=== PATIENT | male | born 1950 | race Caucasian/White ===

== ENCOUNTER 2017-07-09 09:29 | Emergency (ER) | payer OTHER ==
[~2017-07-09] VITALS: Ht 167.6 cm; Wt 90.5 kg
[2017-07-09 09:32] VITALS: BP 199/90; PULSE 58; RESP 20; TEMP 98; O2SAT 98
[2017-07-09] MEDS ORDERED: LOVA20TA PO ×2 (10:43)
[2017-07-09] MEDS ORDERED: METO50TA PO ×2 (10:43)
[2017-07-09] MEDS ORDERED: TIZA4CAP3 PO ×2 (10:43)
[2017-07-09] MEDS ORDERED: PANT40TA3 PO ×2 (10:43)
[2017-07-09] MEDS ORDERED: VITACAP7 PO ×2 (10:43)
[2017-07-09] MEDS ORDERED: LOSA100T PO ×2 (10:43)
[2017-07-09] MEDS ORDERED: FISH1000 PO ×2 (10:43)
[2017-07-09] MEDS ORDERED: TRAM50TA PO ×2 (10:43)
[2017-07-09] MEDS ORDERED: ASPI325T PO ×2 (10:43)
[2017-07-09] MEDS ORDERED: CHOL20005 PO ×2 (10:43)
[2017-07-09] MEDS ORDERED: SODIUM CHLORIDE 0.9% FLUSH 10 ML FLUSH IVF PRN (10:45)
[2017-07-09] MEDS ORDERED: SODIUM CHLOR 0.9% 1000 ML INJ 1,000 ML IV ONE (10:45)
[2017-07-09 10:46] VITALS: BP 151/73; PULSE 57; RESP 17; O2SAT 96
--- NOTE | 2017-07-09 11:08 | PD ---
HPI Chief Complaint: Syncope/Near-Syncope Time Seen by Provider: 09:58 Travel History International Travel<30 days: No Contact w/Intl Traveler<30days: No Traveled to known affect area: No History of Present Illness HPI This 66-year-old man who presents to the emergency department complaining of syncopal episodes so she was swallowing. He states when he swallows liquids from time to time he gets lightheaded and presyncopal. He states that he feels like it's going into his lungs but denies any choking sensations or coughing. He has no trouble with solids ever. He's had his esophagus stretched twice after endoscopy. He's never had a swallow study. No history of stroke. He has had a CABG in the past. Had hypertension hyperlipidemia. No other complaints. He's now had several episodes of complete syncope but now feels like when he swallowing making feel coming on in and abort the episodes. It's unclear if this is related to certain head movements or not. History Past Medical History Narrative Medical CABG, CAD, Hypertension on hyperlipidemia Influenza Vaccination: Yes Social History Alcohol Use: Yes (occas) Tobacco Use: No Allergies-Medications (Allergen,Severity, Reaction): Coded Allergies: No Known Allergies (Unverified , 07/09/17) Reported Meds & Prescriptions Reported Meds & Active Scripts Active Reported B Complex (B-Complex Vitamins) 1 Cap 1 Cap PO DAILY Losartan (Losartan Potassium) 100 Mg Tab 100 Mg PO DAILY Aspirin 325 Mg Tab 325 Mg PO DAILY D3 Super Strength (Cholecalciferol) 2,000 Unit Cap 2,000 Units PO DAILY Fish Oil ([place]-3 Fatty Acids) 1,000 Mg Cap 1 Cap PO TID Lovastatin 20 Mg Tab 20 Mg PO DAILY Metoprolol Tartrate 50 Mg Tab 25 Mg PO BID Tizanidine (Tizanidine HCl) 4 Mg Cap 4 Mg PO TID PRN Tramadol (Tramadol HCl) 50 Mg Tab 50 Mg PO Q6H PRN Pantoprazole (Pantoprazole Sodium) 40 Mg Tab 40 Mg PO DAILY Review of Systems Except as stated in HPI: all other systems reviewed are Neg Physical Exam Narrative GENERAL: This 66-year-old man, no acute distress. SKIN: Focused skin assessment warm/dry. HEAD: Atraumatic. Normocephalic. EYES: Pupils equal and round. No scleral icterus. No injection or drainage. ENT: No nasal bleeding or discharge. Mucous membranes pink and moist. NECK: Trachea midline. No JVD. No carotid bruits. CARDIOVASCULAR: Regular rate and rhythm. No murmur appreciated. RESPIRATORY: No accessory muscle use. Clear to auscultation. Breath sounds equal bilaterally. GASTROINTESTINAL: Abdomen soft, non-tender, nondistended. Hepatic and splenic margins not palpable. MUSCULOSKELETAL: No obvious deformities. NEUROLOGICAL: Awake and alert. No obvious cranial nerve deficits. Motor grossly within normal limits. Normal speech. PSYCHIATRIC: Appropriate mood and affect; insight and judgment normal. Data Data Last Documented VS Vital Signs Date Time Temp Pulse Resp B/P (MAP) Pulse Ox O2 Delivery O2 Flow Rate FiO2 07/09/17 10:46 57 17 151/73 (99) 96 Room Air 07/09/17 09:32 98.0 Orders Orders Electrocardiogram (07/09/17 10:40) Complete Blood Count With Diff (07/09/17 10:40) Comprehensive Metabolic Panel (07/09/17 10:40) Magnesium (Mg) (07/09/17 10:40) Troponin I (07/09/17 10:40) Chest, Single Ap (07/09/17 10:40) Ecg Monitoring (07/09/17 10:40) Iv Access Insert/Monitor (07/09/17 10:40) Oximetry (07/09/17 10:40) Oxygen Administration (07/09/17 10:40) Sodium Chloride 0.9% Flush (Ns Flush) (07/09/17 10:45) Sodium Chlor 0.9% 1000 Ml Inj (Ns 1000 M (07/09/17 10:45) Labs Laboratory Tests Test 07/09/17 10:42 White Blood Count 7.0 TH/MM3 Red Blood Count 4.66 MIL/MM3 Hemoglobin 14.2 GM/DL Hematocrit 43.3 % Mean Corpuscular Volume 93.0 FL Mean Corpuscular Hemoglobin 30.6 PG Mean Corpuscular Hemoglobin Concent 32.9 % Red Cell Distribution Width 13.3 % Platelet Count 201 TH/MM3 Mean Platelet Volume 9.0 FL Neutrophils (%) (Auto) 69.4 % Lymphocytes (%) (Auto) 20.0 % Monocytes (%) (Auto) 8.3 % Eosinophils (%) (Auto) 2.0 % Basophils (%) (Auto) 0.3 % Neutrophils # (Auto) 4.9 TH/MM3 Lymphocytes # (Auto) 1.4 TH/MM3 Monocytes # (Auto) 0.6 TH/MM3 Eosinophils # (Auto) 0.1 TH/MM3 Basophils # (Auto) 0.0 TH/MM3 CBC Comment DIFF FINAL Differential Comment Blood Urea Nitrogen 18 MG/DL Creatinine 1.30 MG/DL Random Glucose 101 MG/DL Total Protein 7.3 GM/DL Albumin 3.6 GM/DL Calcium Level 9.6 MG/DL Magnesium Level 2.1 MG/DL Alkaline Phosphatase 68 U/L Aspartate Amino Transf (AST/SGOT) 13 U/L Alanine Aminotransferase (ALT/SGPT) 16 U/L Total Bilirubin 0.5 MG/DL Sodium Level 139 MEQ/L Potassium Level 4.2 MEQ/L Chloride Level 105 MEQ/L Carbon Dioxide Level 25.1 MEQ/L Anion Gap 9 MEQ/L Estimat Glomerular Filtration Rate 55 ML/MIN Troponin I LESS THAN 0.02 NG/ML MDM Medical Decision Making Medical Screen Exam Complete: Yes Emergency Medical Condition: Yes Interpretation(s) My review of EKG: Sinus bradycardia at a rate of 54, normal axis, normal intervals, no acute ischemia. CBC is unremarkable. CMP is unremarkable. Troponin negative. Chest x-ray: No evidence of acute cardiopulmonary disease. Mild cognitive cardiomegaly. Previous CABG. Differential Diagnosis Syncope, vascular disease, carotid sinus syndrome, other Narrative Course Medical decision making This 66 year woman who presents emergency department with syncopal and near- syncopal episodes associated with swallowing liquids. He has no trouble with solids. He has no coughing or other symptoms of aspiration describes symptoms as more of a lightheadedness and fainting symptoms. Is a little bit of a slow heart rate. Considerations given 2 carotid sinus symptoms or reflex bradycardia. We'll check screening labs and x-ray, reassess. FINAL: Initial workups unremarkable. Etiology is unclear. Could be silent aspiration he says he feels the need to cough but can't really cough. This could be contributing to his near syncopal episodes. Carotid sinus symptoms also seem possible. I do waiting to skin reevaluate as an outpatient. He'll return for any worsening symptoms. Diagnosis Primary Impression: Near syncope Additional Instructions: Follow-up with her primary doctor on Tuesday. Return to the emergency department for any new or worsening symptoms. Med/Other Pt SpecificInfo: No Change to Meds Disposition: 01 DISCHARGE HOME Condition: Stable Jamil Echavarria MD Jul 09, 2017 11:08
--- NOTE | 2017-07-09 11:09 | RADRPT ---
EXAM DATE/TIME: 07/09/2017 10:54 [facility] COMPARISON: No previous studies available for comparison. INDICATIONS : Feeling lightheaded after eating. Complaints of feeling food stuck in throat when eating. Fainted thr ee days ago after a meal. MEDICAL HISTORY : None. SURGICAL HISTORY : Quintuple bypass. ENCOUNTER: Initial ACUITY: 3 days PAIN SCORE: 0/10 LOCATION: Bilateral chest FINDINGS: No infiltrate, effusion or pneumothorax demonstrated. Mild compensated cardiomegaly. Patient has had previous median sternotomy and coronary artery bypass graft operation. CONCLUSION: 1. No evidence of acute cardiopulmonary disease. 2. Mild compensated cardiomegaly. Previous CABG. Avila Engle MD on July 09, 2017 at 11:07 Board Certified Radiologist. This report was verified electronically.
[2017-07-09 11:13] LABS: AUTOMATED NEUTROPHIL # 4.9 TH/MM3 (1.8-7.7); BASOPHIL % 0.3 % (0.0-2.0); EOSINOPHIL # 0.1 TH/MM3 (0-0.4); HEMATOCRIT 43.3 % (39.0-51.0); HEMO FLAGS DIFF FINAL; LYMPHOCYTE # 1.4 TH/MM3 (1.0-4.8); MEAN CORPUSCULAR HEMOGLOBIN 30.6 PG (27.0-34.0); MEAN CORPUSCULAR HGB CONC 32.9 % (32.0-36.0); MONO % 8.3 % (0.0-8.0); NEUT % 69.4 % (16.0-70.0); PLATELET COUNT 201 TH/MM3 (150-450); RED BLOOD COUNT 4.66 MIL/MM3 (4.50-5.90); RED CELL DISTRIBUTION WIDTH 13.3 % (11.6-17.2)
[2017-07-09 11:31] LABS: ANION GAP 9 MEQ/L (5-15); AST (GOT) 13 U/L (15-37); BICARBONATE 25.1 MEQ/L (21.0-32.0); BLOOD UREA NITROGEN 18 MG/DL (7-18); CHLORIDE 105 MEQ/L (98-107); GLOMERULAR FILTRATION RATE 55 ML/MIN (>89); MAGNESIUM 2.1 MG/DL (1.5-2.5); POTASSIUM 4.2 MEQ/L (3.5-5.1); SODIUM (NA) 139 MEQ/L (136-145)
[2017-07-09 11:33] LABS: ALT (GPT) 16 U/L (12-78)
[2017-07-09 11:36] LABS: ALKALINE PHOSPHATASE 68 U/L (45-117); TOTAL BILIRUBIN ADULT 0.5 MG/DL (0.2-1.0)
--- NOTE | 2017-07-09 15:22 | EKG ---
Date Performed: 07/09/2017 Time Performed: 10:03:48 PTAGE: 66 years EKG: SINUS BRADYCARDIA LOW QRS VOLTAGE IN PRECORDIAL LEADS BORDERLINE ECG NO PREVIOUS TRACING DOCTOR: Pete Chavez Interpretating Date/Time 07/09/2017 15:21:40
[2017-07-09] MEDS ORDERED: MULTTAB67 PO ×2 (16:54)
[2017-07-10] MEDS ORDERED: METO25TA3 PO (14:20)
== END 2017-07-09 12:30 | disposition home or self-care (01) ==
LOC: NEPC 09:29
DX: R55 Syncope and collapse (principal); R94.31 Abnormal electrocardiogram [ECG] [EKG]; I10 Essential (primary) hypertension; E78.5 Hyperlipidemia, unspecified; Z86.79 Personal history of other diseases of the circulatory system
CPT/HCPCS: 71010; 80053; 83735; 84484; 85025; 93005; 99285; J7030

== ENCOUNTER 2017-07-09 15:09 | Observation (INO) | payer OTHER ==
[2017-07-09] VITALS (7 sets, daily range): BP systolic 121–189; BP diastolic 58–86; PULSE 60–69; RESP 13–20; TEMP 98.1–98.7; O2SAT 97–99
[~2017-07-09] VITALS: Ht 167.6 cm; Wt 92.0 kg
[~2017-07-09 15:09] MED LIST: ASPI325T PO; CHOL20005 PO; FISH1000 PO; LOSA100T PO; LOVA20TA PO; METO50TA PO; PANT40TA3 PO; TIZA4CAP3 PO; TRAM50TA PO; VITACAP7 PO
[2017-07-09] MEDS ORDERED: MULTTAB67 PO ×2 (16:54)
--- NOTE | 2017-07-09 17:09 | PD ---
HPI Chief Complaint: Dizziness Time Seen by Provider: 16:41 Travel History International Travel<30 days: No Contact w/Intl Traveler<30days: No Traveled to known affect area: No History of Present Illness HPI This 66-year-old man who represents to the ED with complaint of lightheadedness dizziness presyncope after being discharged from the ED about 2 or 3 hours ago. Initially he presented To the emergency department complaining of syncopal episodes associated with swallowing. He states when he swallows liquids from time to time he gets lightheaded and presyncopal. He states that he feels like it's going into his lungs but denies any choking sensations or coughing. He has no trouble with solids ever. He's had his esophagus stretched twice after endoscopy. He's never had a swallow study. No history of stroke. He has had a CABG in the past. Had hypertension hyperlipidemia. No other complaints. He' s now had several episodes of complete syncope but now feels like when he swallowing making feel coming on in and abort the episodes. It's unclear if this is related to certain head movements or not. History Past Medical History Narrative Medical CABG, CAD, Hypertension hyperlipidemia Social History Alcohol Use: Yes (WEEKLY) Tobacco Use: No Allergies-Medications (Allergen,Severity, Reaction): Coded Allergies: codeine (Verified Allergy, Severe, Hives, 07/09/17) Reported Meds & Prescriptions Reported Meds & Active Scripts Active Reported Multiple Vitamin 1 Tab 1 Tab PO DAILY B Complex (B-Complex Vitamins) 1 Cap 1 Cap PO DAILY Losartan (Losartan Potassium) 100 Mg Tab 100 Mg PO DAILY Aspirin 325 Mg Tab 325 Mg PO DAILY D3 Super Strength (Cholecalciferol) 2,000 Unit Cap 2,000 Units PO DAILY Fish Oil ([place]-3 Fatty Acids) 1,000 Mg Cap 1 Cap PO TID Lovastatin 20 Mg Tab 20 Mg PO DAILY Metoprolol Tartrate 50 Mg Tab 25 Mg PO BID Tizanidine (Tizanidine HCl) 4 Mg Cap 4 Mg PO TID PRN Tramadol (Tramadol HCl) 50 Mg Tab 50 Mg PO Q6H PRN Pantoprazole (Pantoprazole Sodium) 40 Mg Tab 40 Mg PO DAILY Review of Systems Except as stated in HPI: all other systems reviewed are Neg Physical Exam Narrative GENERAL: This 66-year-old man, no acute distress. SKIN: Focused skin assessment warm/dry. HEAD: Atraumatic. Normocephalic. EYES: Pupils equal and round. No scleral icterus. No injection or drainage. ENT: No nasal bleeding or discharge. Mucous membranes pink and moist. NECK: Trachea midline. No JVD. No carotid bruits. CARDIOVASCULAR: Regular rate and rhythm. No murmur appreciated. RESPIRATORY: No accessory muscle use. Clear to auscultation. Breath sounds equal bilaterally. GASTROINTESTINAL: Abdomen soft, non-tender, nondistended. Hepatic and splenic margins not palpable. MUSCULOSKELETAL: No obvious deformities. NEUROLOGICAL: Awake and alert. No obvious cranial nerve deficits. Motor grossly within normal limits. Normal speech. PSYCHIATRIC: Appropriate mood and affect; insight and judgment normal. Data Data Last Documented VS Vital Signs Date Time Temp Pulse Resp B/P (MAP) Pulse Ox O2 Delivery O2 Flow Rate FiO2 07/09/17 18:00 66 20 168/79 (108) 98 Room Air 07/09/17 15:12 98.7 Orders Orders Admit Order (Ed Use Only) (07/09/17 ) [facility] Medical Decision Making Medical Screen Exam Complete: Yes Emergency Medical Condition: Yes Medical Record Reviewed: Yes Interpretation(s) Review of labs from earlier today: My review of EKG: Sinus bradycardia at a rate of 54, normal axis, normal intervals, no acute ischemia. CBC is unremarkable. CMP is unremarkable. Troponin negative. Chest x-ray: No evidence of acute cardiopulmonary disease. Mild cognitive cardiomegaly. Previous CABG. Differential Diagnosis Syncope, aspiration, bradycardia, sinus syndrome, other Narrative Course 66-year-old man with syncope and presyncopal episodes typically associated with drinking thin liquids. No definite aspiration symptoms. Etiology is unclear. Initial screening workup was negative and he was discharged home for outpatient follow-up but now develop recurrent episodes of worsening symptoms so was brought back to the emergency department. Diagnosis Primary Impression: Syncope and collapse Admitting Information Admitting Physician Requests: Jamil Austin MD Jul 09, 2017 17:09
[2017-07-09] MEDS ORDERED: traMADol HCL 50 MG TAB PO PRN (18:15)
[2017-07-09] MEDS ORDERED: ACETAMINOPHEN 325 MG TAB PO PRN (18:15)
[2017-07-09] MEDS ORDERED: ONDANSETRON HCL 4 MG/2 ML VIAL IVP PRN (18:15)
[2017-07-09] MEDS ORDERED: NON-FORMULARY DRUG (B-Complex Vitamins (B Complex) 1 CAP) PO SCH (18:15)
[2017-07-09] MEDS ORDERED: SENNOSIDES 8.6 MG TAB PO PRN (18:15)
[2017-07-09] MEDS ORDERED: NALOXONE HCL 0.4 MG/ML AMP IV PRN (18:15)
[2017-07-09] MEDS ORDERED: LACTULOSE SYRUP 20 GM/30 ML CUP PO PRN (18:15)
[2017-07-09] MEDS ORDERED: BISACODYL 10 MG SUPP RECTAL PRN (18:15)
[2017-07-09] MEDS ORDERED: MAGNESIUM HYDROXIDE SUSP 30 ML CUP PO PRN (18:15)
[2017-07-09] MEDS: PANTOPRAZOLE SOD 40 MG DELAYED RELEASE TAB PO SCH (18:15)
[2017-07-09] MEDS ORDERED: SODIUM CHLORIDE 0.9% FLUSH 10 ML FLUSH IV FLUSH PRN (18:15)
--- NOTE | 2017-07-09 18:24 | HHI.HP ---
[facility] Service [facility] Primary Care Physician Unknown Admission Diagnosis syncope Diagnoses: Chief Complaint: Passing out Travel History International Travel<30 Days: No Contact w/Intl Traveler <30 Da: No Traveled to Known Affected Are: No History of Present Illness This is a 66-year-old male past medical history of coronary disease status post CABG and esophageal strictures status post dilatation 2 who presented with syncope. Patient stated 3 days ago he drank some water and felt like it was stuck in his throat then he passed out. He stated that he woke up knowing what happened because this happened last time. Patient stated that when he woke up he felt a little lightheadedness. Denies any chest pain, shortness of breathing , palpitation. He denies any incontinence. He stated that this happened one year ago and feels like there is association with eating food. Patient also stated that after he eats solid he feels shaky. He stated that he feels that he can pass out but doesn't pass out. Patient stated that he eats multiple meals throughout the day and that he is not hungry when he eats. Patient is very hesitant to eat because of the symptoms. He last saw his GI physician in January of this year. All other review symptoms reviewed and negative. Past Family Social History Past Medical History Coronary artery disease Hypertension Esophageal strictures Hyperlipidemia History of gastric ulcer Past Surgical History Esophageal dilatation CABG Reported Medications Reported Meds & Active Scripts Active Reported Multiple Vitamin 1 Tab 1 Tab PO DAILY B Complex (B-Complex Vitamins) 1 Cap 1 Cap PO DAILY Losartan (Losartan Potassium) 100 Mg Tab 100 Mg PO DAILY Aspirin 325 Mg Tab 325 Mg PO DAILY D3 Super Strength (Cholecalciferol) 2,000 Unit Cap 2,000 Units PO DAILY Fish Oil ([place]-3 Fatty Acids) 1,000 Mg Cap 1 Cap PO TID Lovastatin 20 Mg Tab 20 Mg PO DAILY Metoprolol Tartrate 50 Mg Tab 25 Mg PO BID Tizanidine (Tizanidine HCl) 4 Mg Cap 4 Mg PO TID PRN Tramadol (Tramadol HCl) 50 Mg Tab 50 Mg PO Q6H PRN Pantoprazole (Pantoprazole Sodium) 40 Mg Tab 40 Mg PO DAILY Allergies: Coded Allergies: codeine (Verified Allergy, Severe, Hives, 07/09/17) Active Ordered Medications Current Medications Sodium Chloride 1,000 ml @ 75 mls/hr [id number] IV ; Start 07/09/17 at 18:10; Status UNV Sodium Chloride (NS Flush) 2 ml UNSCH PRN IV FLUSH FLUSH AFTER USING IV ACCESS ; Start 07/09/17 at 18:15; Status UNV Sodium Chloride (NS Flush) 2 ml BID IV FLUSH ; Start 07/09/17 at 21:00; Status UNV Acetaminophen (Tylenol) 650 mg Q4H PRN PO TEMP > 100.4; Start 07/09/17 at 18:15 ; Status UNV Ondansetron HCl (Zofran Inj) 4 mg Q6H PRN IVP NAUSEA OR VOMITING; Start at 18:15; Status UNV Naloxone HCl (Narcan Inj) 0.4 mg UNSCH PRN IV SEE LABEL COMMENTS; Start at 18:15; Status UNV Senna/Docusate Sodium ([place]uel[place]-Colace) 1 tab BID PO ; Start 07/09/17 at 21:00; Status UNV Magnesium Hydroxide (Milk Of Magnesia Liq) 30 ml Q12H PRN PO MILD - MODERATE CONSTIPATION; Start 07/09/17 at 18:15; Status UNV Sennosides (Senokot) 17.2 mg Q12H PRN PO MODERATE - SEVERE CONSTIPATION; Start 07/09/17 at 18:15; Status UNV Bisacodyl (Dulcolax Supp) 10 mg DAILY PRN RECTAL SEVERE CONSITIPATION; Start at 18:15; Status UNV Lactulose (Lactulose Liq) 30 ml DAILY PRN PO SEVERE CONSITIPATION; Start at 18:15; Status UNV Family History Father had a history of esophageal cancer. Mother had ovarian cancer. Brother had liver and colon cancer. Social History Patient lives at home. Deny any tobacco use. Deny alcohol or illicit drug use. Physical Exam Vital Signs Vital Signs Date Time Temp Pulse Resp B/P (MAP) Pulse Ox O2 Delivery O2 Flow Rate FiO2 07/09/17 18:00 66 20 168/79 (108) 98 Room Air 07/09/17 17:00 64 16 143/67 (92) 99 Room Air 07/09/17 16:47 66 13 160/69 (99) 98 Room Air 07/09/17 15:12 98.7 66 18 189/86 (120) 97 Room Air Physical Exam GENERAL: This is a well-nourished, well-developed patient, in no apparent distress. SKIN: No rashes, ecchymoses or lesions. Cool and dry. HEAD: Atraumatic. Normocephalic. No temporal or scalp tenderness. EYES: Pupils equal round and reactive. Extraocular motions intact. No scleral icterus. No injection or drainage. ENT: Nose without bleeding, purulent drainage or septal hematoma. Throat without erythema, tonsillar hypertrophy or exudate. Uvula midline. Airway patent. NECK: Trachea midline. No JVD or lymphadenopathy. Supple, nontender, no meningeal signs. CARDIOVASCULAR: Regular rate and rhythm without murmurs, gallops, or rubs. RESPIRATORY: Clear to auscultation. Breath sounds equal bilaterally. No wheezes , rales, or rhonchi. GASTROINTESTINAL: Abdomen soft, non-tender, nondistended. No hepato-splenomegaly , or palpable masses. No guarding. MUSCULOSKELETAL: Extremities without clubbing, cyanosis, or edema. No joint tenderness, effusion, or edema noted. No calf tenderness. Negative Homans sign bilaterally. NEUROLOGICAL: Awake and alert. Cranial nerves II through XII intact. Motor and sensory grossly within normal limits. Five out of 5 muscle strength in all muscle groups. Normal speech. Caprini VTE Risk Assessment Caprini VTE Risk Assessment: Mod/High Risk (score >= 2) Caprini Risk Assessment Model Point Value = 1 Point Value = 2 Point Value = 3 Point Value = 5 Age 41-60 Minor surgery BMI > 25 kg/m2 Swollen legs Varicose veins or History of unexplained or recurrent spontaneous Oral contraceptives or hormone replacement Sepsis (< 1 month) Serious lung disease, including pneumonia (< 1 month) Abnormal pulmonary function Acute myocardial infarction Congestive heart failure (< 1 month) History of inflammatory bowel disease Medical patient at bed rest Age 61-74 Arthroscopic surgery Major open surgery (> 45 min) Laparoscopic surgery (> 45 min) Malignancy Confined to bed (> 72 hours) Immobilizing plaster cast Central venous access Age >= 75 History of VTE Family history of VTE Factor V Leiden Prothrombin [id number] Lupus anticoagulant Anticardiolipin antibodies Elevated serum homocysteine Heparin-induced thrombocytopenia Other congenital or acquired thrombophilia Stroke (< 1 month) Elective arthroplasty Hip, pelvis, or leg fracture Acute spinal cord injury (< 1 month) Prophylaxis Regimen Total Risk Factor Score Risk Level Prophylaxis Regimen 0-1 Low Early ambulation 2 Moderate Order ONE of the following: *Sequential Compression Device (SCD) *Heparin 5000 units SQ BID 3-4 Higher Order ONE of the following medications: *Heparin 5000 units SQ TID *Enoxaparin/Lovenox 40 mg SQ daily (WT < 150 kg, CrCl > 30 mL/min) *Enoxaparin/Lovenox 30 mg SQ daily (WT < 150 kg, CrCl > 10-29 mL/min) *Enoxaparin/Lovenox 30 mg SQ BID (WT < 150 kg, CrCl > 30 mL/min) AND/OR *Sequential Compression Device (SCD) 5 or more Highest Order ONE of the following medications: *Heparin 5000 units SQ TID (Preferred with Epidurals) *Enoxaparin/Lovenox 40 mg SQ daily (WT < 150 kg, CrCl > 30 mL/min) *Enoxaparin/Lovenox 30 mg SQ daily (WT < 150 kg, CrCl > 10-29 mL/min) *Enoxaparin/Lovenox 30 mg SQ BID (WT < 150 kg, CrCl > 30 mL/min) AND *Sequential Compression Device (SCD) Assessment and Plan Assessment and Plan 66-year-old male presented with syncope Syncope -Seemed to be related with liquid intake. Like the secondary to vasovagal. EKG reviewed and labs reviewed. Imaging reviewed not impressive. -Will monitor patient on telemetry. Will trend troponins. Will also get an echo. -Will also monitor blood sugars since patient stated that after eating he gets shaky. Dysphagia -History of esophageal stricture status post dilatation -Will get a swallow eval. -Consult GI since patient is scared to take any by mouth intake. Coronary artery disease/history of gastric ulcer/hyperlipidemia/hypertension -Resume home medication. Code Status Full code Discussed Condition With Patient, his daughter and son at the bedside Carleen Preston MD Jul 09, 2017 18:24
[2017-07-09] MEDS: MULTIVITAMIN TAB PO SCH (20:00)
[2017-07-09] MEDS: PRAVASTATIN SOD 20 MG TAB PO SCH (20:24)
[2017-07-09] MEDS: ASPIRIN 325 MG TAB PO SCH (20:25)
[2017-07-09] MEDS: LOSARTAN 50 MG TAB PO SCH (20:25)
[2017-07-09] MEDS: CHOLECALCIFEROL (VIT D3) 1000 UNIT TAB PO SCH (20:27)
[2017-07-09] MEDS ORDERED: METOPROLOL TARTRATE 25 MG TAB PO SCH (21:00)
[2017-07-09] MEDS: DOCUSATE SODIUM 50 MG/SENNA 8.6 MG TAB PO SCH (21:00)
[2017-07-09] MEDS: SODIUM CHLOR 0.45% 1000 ML INJ 1,000 ML IV SCH (22:38)
[2017-07-09] MEDS: SODIUM CHLORIDE 0.9% FLUSH 10 ML FLUSH IV FLUSH SCH (22:40)
[2017-07-10 00:05] VITALS: PULSE 55
[2017-07-10 04:24] VITALS: PULSE 51
[2017-07-10 05:43] VITALS: BP 141/67; PULSE 56; RESP 18; TEMP 98.3; O2SAT 99
[2017-07-10 07:15] VITALS: PULSE 50
[2017-07-10 08:16] LABS: HEMATOCRIT 40.4 % (39.0-51.0); MEAN CELL VOLUME 93.3 FL (80.0-100.0); MEAN CORPUSCULAR HEMOGLOBIN 31.2 PG (27.0-34.0); MEAN CORPUSCULAR HGB CONC 33.4 % (32.0-36.0); PLATELET COUNT 175 TH/MM3 (150-450); RED BLOOD COUNT 4.33 MIL/MM3 (4.50-5.90); RED CELL DISTRIBUTION WIDTH 13.1 % (11.6-17.2); REVIEW FLAG FINAL; WHITE BLOOD COUNT 8.2 TH/MM3 (4.0-11.0)
[2017-07-10 08:22] VITALS: BP 180/72; PULSE 56; RESP 20; TEMP 98; O2SAT 95
[2017-07-10 08:23] LABS: ANION GAP 5 MEQ/L (5-15); BICARBONATE 26.9 MEQ/L (21.0-32.0); BLOOD UREA NITROGEN 17 MG/DL (7-18); CHLORIDE 108 MEQ/L (98-107); GLOMERULAR FILTRATION RATE 60 ML/MIN (>89); POTASSIUM 4.3 MEQ/L (3.5-5.1); SODIUM (NA) 140 MEQ/L (136-145)
[2017-07-10] MEDS ORDERED: VITAMIN B COMPLEX/VIT C TAB PO SCH (09:00)
[2017-07-10] MEDS: SODIUM CHLORIDE 0.9% FLUSH 10 ML FLUSH IV FLUSH SCH (09:00)
[2017-07-10] MEDS: ASPIRIN 325 MG TAB PO SCH (09:00)
[2017-07-10] MEDS ORDERED: NON-FORMULARY DRUG (Omega-3 Fatty Acids (Fish Oil) 1 CAP) PO SCH (09:00)
[2017-07-10] MEDS: LOSARTAN 50 MG TAB PO SCH (09:01)
[2017-07-10] MEDS: MULTIVITAMIN TAB PO SCH (09:01)
[2017-07-10] MEDS: PRAVASTATIN SOD 20 MG TAB PO SCH (09:01)
[2017-07-10] MEDS: PANTOPRAZOLE SOD 40 MG DELAYED RELEASE TAB PO SCH (09:01)
[2017-07-10] MEDS: CHOLECALCIFEROL (VIT D3) 1000 UNIT TAB PO SCH (09:02)
[2017-07-10] MEDS: DOCUSATE SODIUM 50 MG/SENNA 8.6 MG TAB PO SCH (09:02)
[2017-07-10] MEDS: SODIUM CHLOR 0.45% 1000 ML INJ 1,000 ML IV SCH (09:03)
--- NOTE | 2017-07-10 09:55 | PD.CONS ---
HPI History of Present Illness This is a 66 year old male with hx CAD s/p CABG on ASA, 2 x EGD w/ dilatation who presented to the ER after a fall after he drink water and passed out. THis happened Tuesday and he came to the ER yesterday and was sent home and told to f/u with PCP. When he got home yesterday he started having shakes. He has been able to eat and drink but would get shakes after. THe last 2 meals this did not happen. He did eat breakfast. Denies regurgitation, n/v, blood on emesis or stool, abdominal pain, weight loss. He has trouble swallowing water, he feels lightheaded like he is losing consciousness, he will "get to the floor and start flopping and kicking" and then wake up on the floor. This happens on occasion but not every time and now he is afraid to drink water. THis has happens 1-2 x per year. He admits that the rest of the year when he drinks water this does not happen. He last had EGD w/ dilatation and colonoscopy a few months in [place] with Dr Magallanes, findings included polys (he does not know where) and an ulcer for which he was given "a pill." Admits occasional reflux, worse in the past. (Hannah Childs) PFSH Past Medical History Coronary artery disease Hypertension Esophageal strictures Hyperlipidemia History of gastric ulcer Past Surgical History Esophageal dilatation x 2 CABG (Hannah Childs) Coded Allergies: codeine (Verified Allergy, Severe, Hives, 07/09/17) Family History Father had a history of esophageal cancer. Mother had ovarian cancer. Brother had liver and colon cancer. Social History Patient lives at home. Deny any tobacco use. Deny alcohol or illicit drug use. (Hannah Childs) Review of Systems Constitutional: DENIES: Fever, Weight loss Eyes: DENIES: Blurred vision Ears, nose, mouth, throat: DENIES: Throat pain Respiratory: DENIES: Cough, Shortness of breath Cardiovascular: DENIES: Chest pain Gastrointestinal: COMPLAINS OF: Constipation, DENIES: Abdominal pain, Black stools, Bloody stools, Diarrhea, Nausea, Vomiting, Hematemesis Genitourinary: DENIES: Hematuria Musculoskeletal: DENIES: Joint Swelling Neurologic: DENIES: Abnormal gait Psychiatric: DENIES: Confusion (Hannah Childs) GI Exam Vitals I&O Vital Signs Date Time Temp Pulse Resp B/P (MAP) Pulse Ox O2 Delivery O2 Flow Rate FiO2 07/10/17 08:22 98.0 56 20 180/72 (108) 95 07/10/17 05:43 98.3 56 18 141/67 (91) 99 07/10/17 04:24 51 07/10/17 00:05 55 07/09/17 23:07 98.1 60 18 128/59 (82) 98 07/09/17 22:36 69 121/58 (79) 07/09/17 20:18 98.4 65 18 181/79 (113) 98 07/09/17 18:00 66 20 168/79 (108) 98 Room Air 07/09/17 17:00 64 16 143/67 (92) 99 Room Air 07/09/17 16:47 66 13 160/69 (99) 98 Room Air 07/09/17 15:12 98.7 66 18 189/86 (120) 97 Room Air I/O 07/09/17 07/09/17 07/09/17 07/10/17 07/10/17 07/10/17 07:00 15:00 23:00 07:00 15:00 23:00 Intake Total 480 ml Balance 480 ml Intake Oral 480 ml # Voids 3 Laboratory Test 07/09/17 23:29 07/10/17 07:57 Troponin I LESS THAN 0.02 NG/ML LESS THAN 0.02 NG/ML White Blood Count 8.2 TH/MM3 Red Blood Count 4.33 MIL/MM3 Hemoglobin 13.5 GM/DL Hematocrit 40.4 % Mean Corpuscular Volume 93.3 FL Mean Corpuscular Hemoglobin 31.2 PG Mean Corpuscular Hemoglobin Concent 33.4 % Red Cell Distribution Width 13.1 % Platelet Count 175 TH/MM3 Mean Platelet Volume 9.1 FL Blood Urea Nitrogen 17 MG/DL Creatinine 1.21 MG/DL Random Glucose 103 MG/DL Calcium Level 8.6 MG/DL Sodium Level 140 MEQ/L Potassium Level 4.3 MEQ/L Chloride Level 108 MEQ/L Carbon Dioxide Level 26.9 MEQ/L Anion Gap 5 MEQ/L Estimat Glomerular Filtration Rate 60 ML/MIN Thyroid Stimulating Hormone 3rd Gen 1.470 uIU/ML Physical Examination HEENT: PERRL; normocephalic; atraumatic; no jaundice. CHEST: CTA CARDIAC: RRR ABDOMEN: Soft, nondistended, nontender; no hepatosplenomegaly; bowel sounds are present in all four quadrants. EXTREMITIES: No clubbing, cyanosis, or edema. SKIN: Normal; no rash; no jaundice. PRIVATE EYE: No focal deficits; alert and oriented times three. (Hannah Childs) Assessment and Plan Plan ASSESSMENT - dysphagia - 66 yo male with occasional/infrequent syncopal episodes when swallowing water.? swallow syncope hx GERD, ulcer, 2 x esophageal dilatations, last EGD few months ago per pt with Dr Magallanes in [place]. Pt is able to eat and drink at this time, has had 2 meals since admission and has had fluid. swallow eval with ST pending. - syncope - per primary likely 2/2 vasovagal response, plan for telemetry, troponins, echo, BG checks PLAN - await echo, telemetry - MBS - f/u with DR Magallanes after d/c for mgmt ulcer - GEOFF This pt seen by myself and Dr Gallegos and this note is written on his behalf (Hannah Chlids) Physician Comments Seen and examined, plan as above, pending EP studies and speech evali. Will follow up with you. (Klaus Gallegos MD) Hannah Childs Jul 10, 2017 09:55 Klaus Gallegos MD Jul 10, 2017 12:27
[2017-07-10] MEDS ORDERED: METOPROLOL TARTRATE 25 MG TAB PO SCH (11:00)
[2017-07-10 12:20] VITALS: BP 146/67; PULSE 60; RESP 20; TEMP 97.9; O2SAT 96
--- NOTE | 2017-07-10 12:33 | ECHRPT ---
Indication: a fib/flutter CONCLUSIONS Normal left ventricular size. Wall thickness is normal. No regional wall motion abnormalities are present. No mitral valve regurgitation. The aortic valve is not well visualized. No aortic valve stenosis. There is mild tricuspid valve regurgitation. There is estimated moderate pulmonary hypertension present (range 50-60 mmHg). The pulmonary valve is not well visualized. BP: / HR: Rhythm: MEASUREMENTS (Male / Female) Normal Values Technical Quality:Good 2D ECHO LV Diastolic Diameter PLAX 4.5 cm 4.2 - 5.9 / 3.9 - 5.3 cm LV Systolic Diameter PLAX 3.2 cm IVS Diastolic Thickness 0.8 cm 0.6 - 1.0 / 0.6 - 0.9 cm LVPW Diastolic Thickness 0.8 cm 0.6 - 1.0 / 0.6 - 0.9 cm LV Relative Wall Thickness 0.3 RV Internal Dim ED PLAX 2.9 cm M-MODE Aortic Root Diameter MM 2.9 cm LA Systolic Diameter MM 4.5 cm LA Ao Ratio MM 1.6 AV Cusp Separation MM 2.1 cm DOPPLER Mitral E Point Velocity 64.7 cm/s Mitral A Point Velocity 62.7 cm/s Mitral E to A Ratio 1.0 LV E' Lateral Velocity 12.4 cm/s Mitral E to LV E' Lateral Ratio 5.2 LV E' Septal Velocity 14.1 cm/s Mitral E to LV E' Septal Ratio 4.6 TR Peak Velocity 329.0 cm/s TR Peak Gradient 43.3 mmHg FINDINGS LEFT VENTRICLE The left ventricular systolic function is normal with an estimated ejection fraction in the range of 60-65%. Normal left ventricular size. Wall thickness is normal. No regional wall motion abnormalities are present. RIGHT VENTRICLE Normal right ventricular size and systolic function. LEFT ATRIUM The left atrial size is normal. RIGHT ATRIUM The right atrial size is normal. ATRIAL SEPTUM Normal atrial septal thickness without atrial level shunting by limited color doppler interrogation. AORTA The aortic root and proximal ascending aorta are normal in size on limited imaging. MITRAL VALVE Structurally normal mitral valve. No mitral valve regurgitation. AORTIC VALVE The aortic valve is not well visualized. No aortic valve stenosis. TRICUSPID VALVE Structurally normal tricuspid valve. There is mild tricuspid valve regurgitation. There is estimated moderate pulmonary hypertension present (range 50-60 mmHg). PULMONARY VALVE The pulmonary valve is not well visualized. VESSELS The inferior vena cava is normal in size. PERICARDIUM No pericardial effusion. Jordan Velez-Jalen MD (Electronically Signed) Final Date:10 July 2017 12:32
[2017-07-10] MEDS ORDERED: METO25TA3 PO (14:20)
--- NOTE | 2017-07-10 14:34 | HHI.DCPOC ---
Discharge Care Plan Diagnosis: (1) Syncope and collapse Goals to Promote Your Health * To prevent worsening of your condition and complications * To maintain your health at the optimal level Directions to Meet Your Goals Take your medications as prescribed Follow your dietary instruction Follow activity as directed Keep your appointments as scheduled Take your immunizations and boosters as scheduled If your symptoms worsen call your PCP, if no PCP go to Urgent Care Center or Emergency Room Smoking is Dangerous to Your Health. Avoid second hand smoke Call the 24-hour hour crisis hotline for domestic abuse at Carleen Preston MD Jul 10, 2017 14:34
--- NOTE | 2017-07-10 15:19 | RADRPT ---
EXAM DATE/TIME: 07/10/2017 13:47 [facility] COMPARISON: No previous studies available for comparison. INDICATIONS : Feeling of liquid being stuck in throat and passing out. FLUORO TIME: 0.6 minutes IMAGE COUNT: 7 CONTRAST: Dose as prescribed by speech pathologist. MEDICAL HISTORY : None. SURGICAL HISTORY : Quintuple bypass. Esophageal stretching. ENCOUNTER: Initial ACUITY: 1 day PAIN SCORE: 0/10 LOCATION: Neck. FINDINGS: A modified barium swallow was performed with speech pathology. Patient was given a variety of liquids to swallow. Swallowing was normal. CONCLUSION: Normal modified barium swallow. For a full detailed report, see report by the speech pathologist. Avila Engle MD on July 10, 2017 at 15:17 Board Certified Radiologist. This report was verified electronically.
--- NOTE | 2017-07-10 15:59 | HHI.DS ---
Discharge Summary Admission Date Jul 09, 2017 at 18:12 Discharge Date: Jul 10, 2017 Admitting Diagnosis syncope (1) Syncope ICD Code: R55 - Syncope and collapse Diagnosis: Principal Procedures see hospital course Brief History - From Admission This is a 66-year-old male past medical history of coronary disease status post CABG and esophageal strictures status post dilatation 2 who presented with syncope. Patient stated 3 days ago he drank some water and felt like it was stuck in his throat then he passed out. He stated that he woke up knowing what happened because this happened last time. Patient stated that when he woke up he felt a little lightheadedness. Denies any chest pain, shortness of breathing , palpitation. He denies any incontinence. He stated that this happened one year ago and feels like there is association with eating food. Patient also stated that after he eats solid he feels shaky. He stated that he feels that he can pass out but doesn't pass out. Patient stated that he eats multiple meals throughout the day and that he is not hungry when he eats. Patient is very hesitant to eat because of the symptoms. He last saw his GI physician in January of this year. All other review symptoms reviewed and negative. CBC/BMP: 07/10/17 0757 07/10/17 0757 Significant Findings Laboratory Tests Test 07/09/17 23:29 07/10/17 07:57 Troponin I LESS THAN 0.02 NG/ML LESS THAN 0.02 NG/ML Red Blood Count 4.33 MIL/MM3 (4.50-5.90) Chloride Level 108 MEQ/L (98-107) Estimat Glomerular Filtration Rate 60 ML/MIN (>89) Imaging Last Impressions Modified Barium Swallow 07/10/17 0000 Signed Impressions: Service Date/Time: Monday, July 10, 2017 13:47 - CONCLUSION: Normal modified barium swallow. For a full detailed report, see report by the speech pathologist. Avila Engle MD PE at Discharge GENERAL: in NAD SKIN: Warm and dry. HEAD: Normocephalic. EYES: No scleral icterus. No injection or drainage. NECK: Supple, trachea midline. No JVD or lymphadenopathy. CARDIOVASCULAR: Regular rate and rhythm without murmurs, gallops, or rubs. RESPIRATORY: Breath sounds equal bilaterally. No accessory muscle use. GASTROINTESTINAL: Abdomen soft, non-tender, nondistended. MUSCULOSKELETAL: No cyanosis, or edema. BACK: Nontender without obvious deformity. No CVA tenderness. Pt update on day of discharge Follow-up for syncope with oral intake Patient had no problems with having oral intake. Deny any episodes syncope with oral intake. He stated that he has been symptom-free. Deny any chest pain , shortness of breathing, lightheadedness or dizziness. Hospital Course 66-year-old male presented with syncope Syncope -Seemed to be related with liquid intake. Like the secondary to vasovagal. EKG reviewed and labs reviewed. Imaging reviewed not impressive. -Echo reviewed. -GI also consulted since patient stated that this is related to oral intake. He had a barium swallow study done which was negative. -No events over telemetry while he was hospitalized. Dysphagia -History of esophageal stricture status post dilatation -GI consulted. Barium swallow study negative. Patient is to follow-up with his GI physician as outpatient. Coronary artery disease/history of gastric ulcer/hyperlipidemia/hypertension -home medication was resumed during hospitalization. Pt Condition on Discharge: Good Discharge Disposition: Discharge Home Discharge Time: <= 30 minutes Discharge Instructions DIET: Follow Instructions for: Heart Healthy Diet Activities you can perform: Regular-No Restrictions Follow up Referrals: Cardiology - 1 Week PCP Follow-up - 1 Week New Medications: Metoprolol Tartrate (Metoprolol Tartrate) 25 Mg Tab 12.5 MG PO BID for heart disease, #30 TAB 0 Refills Continued Medications: Aspirin (Aspirin) 325 Mg Tab 325 MG PO DAILY, #30 TAB 0 Refills B-Complex Vitamins (B Complex) 1 Cap 1 CAP PO DAILY for Nutritional Supplement, #30 CAP 0 Refills Cholecalciferol (D3 Super Strength) 2,000 Unit Cap 2000 UNITS PO DAILY for Nutritional Supplement, #30 CAP 0 Refills Losartan (Losartan) 100 Mg Tab 100 MG PO DAILY for Blood Pressure Management, #30 TAB 0 Refills Lovastatin (Lovastatin) 20 Mg Tab 20 MG PO DAILY for Cholesterol Management, #30 TAB 0 Refills Multiple Vitamin (Multiple Vitamin) 1 Tab 1 TAB PO DAILY for Nutritional Supplement, TAB 0 Refills [place]-3 Fatty Acids (Fish Oil) 1,000 Mg Cap 1 CAP PO TID Pantoprazole (Pantoprazole) 40 Mg Tab 40 MG PO DAILY for Reflux, #30 TAB 0 Refills Tizanidine (Tizanidine) 4 Mg Cap 4 MG PO TID PRN for PAIN SCALE 4 TO 10, CAP 0 Refills Tramadol (Tramadol) 50 Mg Tab 50 MG PO Q6H PRN for PAIN, TAB 0 Refills Discontinued Medications: Metoprolol Tartrate (Metoprolol Tartrate) 50 Mg Tab 25 MG PO BID, #30 TAB 0 Refills Carleen Preston MD Jul 10, 2017 15:59
== END 2017-07-10 16:38 | disposition home or self-care (01) ==
LOC: NEPC 15:09 → NEDA 18:12 → INTOOBSV 18:12 → NEPGCP 19:55
PROVIDERS: ADMIT Family Medicine; ATTEND Family Medicine
DX: R55 Syncope and collapse (principal); R13.10 Dysphagia, unspecified; I25.10 Atherosclerotic heart disease of native coronary artery without angina pectoris; I10 Essential (primary) hypertension; E78.5 Hyperlipidemia, unspecified; K21.9 Gastro-esophageal reflux disease without esophagitis; Z95.1 Presence of aortocoronary bypass graft; Z87.11 Personal history of peptic ulcer disease; W19.XXXA Unspecified fall, initial encounter; R94.31 Abnormal electrocardiogram [ECG] [EKG]
CPT/HCPCS: 74230; 80048; 82948; 84443; 84484; 85027; 92610; 92611; 93306; 96360; 96361; 99285; G0378; G8996; G8997; G8998; 71010; 80053; 83735; 85025; 93005; J7030

== ENCOUNTER 2017-07-26 22:01 | Observation (INO) | payer OTHER ==
[~2017-07-26] VITALS: Ht 167.6 cm; Wt 90.0 kg
[~2017-07-26 22:01] MED LIST changes: +METO25TA3 PO; -METO50TA PO; +MULTTAB67 PO
[2017-07-26 22:05] VITALS: BP 227/103; PULSE 84; RESP 15; TEMP 98.2; O2SAT 98
[2017-07-26 22:15] VITALS: BP 176/81; PULSE 83; RESP 14; TEMP 98.5; O2SAT 98
[2017-07-26] MEDS ORDERED: NITROGLYCERIN 2% OINT 1 GM PACKET TOP ONE (22:15)
[2017-07-26] MEDS ORDERED: SODIUM CHLORIDE 0.9% FLUSH 10 ML FLUSH IVF PRN (22:15)
[2017-07-26] MEDS ORDERED: NITROGLYCERIN 0.4 MG SL 25 TABS/BTL SL ONE (22:15)
[2017-07-26 22:31] VITALS: BP_SYST 169; BP_SYST 176; BP_DIAS 80; BP_DIAS 81
--- NOTE | 2017-07-26 22:35 | PD ---
HPI Chief Complaint: Chest Pain Time Seen by Provider: 22:10 Travel History International Travel<30 days: No Contact w/Intl Traveler<30days: No Traveled to known affect area: No History of Present Illness HPI The patient is a 66 year old male who presents to the [facility] emergency department with a history of reportedly moving a 4 escamilla trailer out in the heat when he became diaphoretic, lightheaded, and had a sensation of indigestion. The patient reports that he has a history of coronary artery disease status post 5 vessel bypass in 2007. He reports that his last cardiac catheterization that he can recall was prior to his bypass. He denies having history of myocardial infarction. He reports that his last stress test was approximately 2 years ago. 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 The patient reports that he went to the emergency department in [facility] regarding his symptoms. He was told that his cardiac enzymes were abnormal and that he would need to be transferred to another facility for admission as they are closed for admission at that hospital currently. He decided to sign out AGAINST MEDICAL ADVICE as he did not want to be transported by ambulance services. The patient reports that he did not have any chest pain, however he had sensations of indigestion. He reports that he feels anxious now, however he does not have indigestion currently. He denies having any shortness of breath. He denies having any radiation of pain into his jaw or down his arms.. On review of systems, he denies any recent fevers, cough, congestion, abdominal pain, vomiting, diarrhea, urinary symptoms, or neurologic symptoms. [facility] Past Medical History Narrative Medical The patient's past medical history is significant for coronary artery disease, hypertension, esophageal strictures, hyperlipidemia, history of peptic ulcer disease. Hx Anticoagulant Therapy: No Blood Disorders: No Cancer: No Cardiac Catheterization: Yes Cardiovascular Problems: Yes (CABG X 5) High Cholesterol: Yes Chemotherapy: No Cerebrovascular Accident: No Coronary Artery Disease: Yes Diabetes: No Diminished Hearing: No GERD: Yes Genitourinary: No Hypertension: Yes Kidney Stones: Yes Musculoskeletal: No Neurologic: No Psychiatric: No Respiratory: No Past Surgical History Narrative Surgical The patient's past medical history is significant for an esophageal dilatation 2, coronary artery bypass grafting of 5 vessels in 2007. Coronary Artery Bypass Graft: Yes (5 VESSEL BYPASS) Other Surgery: Yes (PLASTIC SURGERY ON NOSE FROM [facility]) Social History Alcohol Use: Yes (WEEKLY) Tobacco Use: No Substance Use: No Allergies-Medications (Allergen,Severity, Reaction): Coded Allergies: codeine (Verified Allergy, Severe, Hives, 07/09/17) Reported Meds & Prescriptions Reported Meds & Active Scripts Active Metoprolol Tartrate 25 Mg Tab 12.5 Mg PO BID Reported Multiple Vitamin 1 Tab 1 Tab PO DAILY B Complex (B-Complex Vitamins) 1 Cap 1 Cap PO DAILY Losartan (Losartan Potassium) 100 Mg Tab 100 Mg PO DAILY Aspirin 325 Mg Tab 325 Mg PO DAILY D3 Super Strength (Cholecalciferol) 2,000 Unit Cap 2,000 Units PO DAILY Fish Oil ([place]-3 Fatty Acids) 1,000 Mg Cap 1 Cap PO TID Lovastatin 20 Mg Tab 20 Mg PO DAILY Tizanidine (Tizanidine HCl) 4 Mg Cap 4 Mg PO TID PRN Tramadol (Tramadol HCl) 50 Mg Tab 50 Mg PO Q6H PRN Pantoprazole (Pantoprazole Sodium) 40 Mg Tab 40 Mg PO DAILY Review of Systems Except as stated in HPI: all other systems reviewed are Neg General / Constitutional: No: Fever Eyes: No: Visual changes HENT: Positive: Lightheadedness, No: Headaches, Congestion Cardiovascular: Positive: Chest Pain or Discomfort, Diaphoresis, No: Dyspnea on exertion Respiratory: No: Cough, Shortness of Breath Gastrointestinal: Positive: Indigestion, No: Abdominal Pain Genitourinary: No: Dysuria Musculoskeletal: No: Pain Skin: No Rash Neurologic: Positive: Weakness (generalized weakness), No: Focal Abnormalities , Change in Mentation, Slurred Speech, Sensory Disturbance Psychiatric: No: Depression Endocrine: No: Polydipsia Hematologic/Lymphatic: No: Easy Bruising Physical Exam Narrative General: The patient is a well-developed well-nourished male in no acute distress. Head and Neck exam: Head is normocephalic atraumatic. Eyes: EOMI, pupils are equal round and reactive to light. Nose: Midline septum with pink mucous membranes Mouth: Dentition unremarkable. Moist mucus membranes. Posterior oropharynx is not erythematous. No tonsillar hypertrophy. Uvula midline. Airway patent. Neck: No palpable lymphadenopathy. No nuchal rigidity. No thyromegaly. Cardiovascular: Regular rate and rhythm without murmurs, gallops, or rubs. No pulse deficit to the extremities on simultaneous auscultation and palpation of his radial artery. Lungs: Clear to auscultation bilaterally. No wheezes, rhonchi, or rales. Abdomen: Soft, without tenderness to palpation in all 4 quadrants of the abdomen. No guarding, rebound, or rigidity. Normal bowel sounds are audible. No tenderness on palpation of McBurney's point. Extremities: No clubbing, cyanosis, or edema. 2+ pulses in all 4 extremities. No calf tenderness on palpation. Back: No spinous process tenderness to palpation. No costovertebral angle tenderness to palpation. Neurologic Exam: Grossly nonfocal. Skin Exam: No rash noted. Intact skin that is warm and dry. Data Data Last Documented VS Vital Signs Date Time Temp Pulse Resp B/P (MAP) Pulse Ox O2 Delivery O2 Flow Rate FiO2 07/26/17 23:00 74 16 169/87 (114) 98 Nasal Cannula 2.00 07/26/17 22:15 98.5 Orders Orders Electrocardiogram (07/26/17 22:11) B-Type Natriuretic Peptide (07/26/17 22:11) Ckmb (Isoenzyme) Profile (07/26/17 22:11) Complete Blood Count With Diff (07/26/17 22:11) Comprehensive Metabolic Panel (07/26/17 22:11) Magnesium (Mg) (07/26/17 22:11) Prothrombin Time / Inr (Pt) (07/26/17 22:11) Act Partial Throm Time (Ptt) (07/26/17 22:11) Troponin I (07/26/17 22:11) Lipase (07/26/17 22:11) Chest, Single Ap (07/26/17 22:11) Ecg Monitoring (07/26/17 22:11) Bilateral Bp Monitoring (07/26/17 22:11) Iv Access Insert/Monitor (07/26/17 22:11) Oximetry (07/26/17 22:11) Oxygen Administration (07/26/17 22:11) Nitroglycerin 2% Oint (Nitroglycerin 2% (07/26/17 22:15) Sodium Chloride 0.9% Flush (Ns Flush) (07/26/17 22:15) Nitroglycerin Sl (Nitrostat Sl) (07/26/17 22:15) D-Dimer (07/26/17 22:11) CKMB (07/26/17 22:30) CKMB% (07/26/17 22:30) Ct Pulmonary Angiogram (07/26/17 23:32) Iohexol 350 Inj (Omnipaque 350 Inj) (07/27/17 00:04) Sodium Chlorid 0.9% 500 Ml Inj (Ns 500 M (07/27/17 00:30) Admit Order (Ed Use Only) (07/27/17 00:41) Labs Laboratory Tests Test 07/26/17 22:30 White Blood Count 9.6 TH/MM3 Red Blood Count 4.37 MIL/MM3 Hemoglobin 13.6 GM/DL Hematocrit 40.2 % Mean Corpuscular Volume 92.1 FL Mean Corpuscular Hemoglobin 31.2 PG Mean Corpuscular Hemoglobin Concent 33.8 % Red Cell Distribution Width 13.4 % Platelet Count 199 TH/MM3 Mean Platelet Volume 8.9 FL Neutrophils (%) (Auto) 65.7 % Lymphocytes (%) (Auto) 23.7 % Monocytes (%) (Auto) 8.6 % Eosinophils (%) (Auto) 1.7 % Basophils (%) (Auto) 0.3 % Neutrophils # (Auto) 6.3 TH/MM3 Lymphocytes # (Auto) 2.3 TH/MM3 Monocytes # (Auto) 0.8 TH/MM3 Eosinophils # (Auto) 0.2 TH/MM3 Basophils # (Auto) 0.0 TH/MM3 CBC Comment DIFF FINAL Differential Comment Prothrombin Time 10.6 SEC Prothromb Time International Ratio 1.0 RATIO Activated Partial Thromboplast Time 23.3 SEC D-Dimer Quantitative (PE/DVT) 0.69 MG/L FEU Blood Urea Nitrogen 24 MG/DL Creatinine 1.40 MG/DL Random Glucose 106 MG/DL Total Protein 7.8 GM/DL Albumin 4.0 GM/DL Calcium Level 8.7 MG/DL Magnesium Level 2.2 MG/DL Alkaline Phosphatase 68 U/L Aspartate Amino Transf (AST/SGOT) 22 U/L Alanine Aminotransferase (ALT/SGPT) 17 U/L Total Bilirubin 0.4 MG/DL Sodium Level 141 MEQ/L Potassium Level 4.1 MEQ/L Chloride Level 108 MEQ/L Carbon Dioxide Level 26.7 MEQ/L Anion Gap 6 MEQ/L Estimat Glomerular Filtration Rate 51 ML/MIN Total Creatine Kinase 156 U/L Creatine Kinase MB 1.9 NG/ML Troponin I 0.02 NG/ML B-Type Natriuretic Peptide 71 PG/ML Lipase 122 U/L MDM Medical Decision Making Medical Screen Exam Complete: Yes Emergency Medical Condition: Yes Medical Record Reviewed: Yes Interpretation(s) Last Impressions CT Angiography 07/26/17 2332 Signed Impressions: Service Date/Time: Thursday, July 27, 2017 00:00 - CONCLUSION: 1. Negative for pulmonary embolus. Severe coronary disease status post CABG. Too Velez MD Chest X-Ray 07/26/17 2211 Signed Impressions: Service Date/Time: Wednesday, July 26, 2017 22:31 - CONCLUSION: No evidence of acute cardiopulmonary disease. Mild, stable compensated cardiomegaly. Avila Engle MD Differential Diagnosis Acute coronary syndrome, versus non-STEMI, versus STEMI, versus rhabdomyolysis, versus orthostasis, versus pulmonary embolism Narrative Course During the course of the patients emergency department visit, the patients history, examination, and differential diagnosis were reviewed with the patient. The patient had the patient was placed on a earth science technician with oximetry and blood pressure monitoring. An ECG was done on arrival. The patient's ECG reveals a sinus rhythm heart rate of 80, nonspecific T-wave abnormalities, QRS duration is 82 ms, QTC [address] segment elevation is noted. T waves are inverted in V1. IV access obtained and blood work sent for analysis. A request was me by making apartment community assistant manager for records from the other facility. The patient was initially provided sublingual nitroglycerin 1, nitroglycerin 1 inch to the chest wall. The patient reports that he did take an adult aspirin earlier today. The patients laboratory studies were reviewed and remarkable for a white count of 9.6, hemoglobin 13.6, platelets 199 with 8.6 monocytes, CMP is remarkable for a chloride of 108, BUN 24, creatinine 1.40, lipase 122, BNP is 71, CPK 156, troponin I 0.02. PT 10.6, PTT 23.3, d-dimer is elevated at 0.69. CTA to rule out PE has been ordered. Radiology studies were reviewed and remarkable for a CTA to rule out PE was negative for pulmonary embolism, severe coronary artery disease status post coronary artery bypass grafting is noted. The patients results were discussed with the patient, including the plan of care. I explained that further testing and/ or monitoring is indicated based on the patients history, examination, and/ or laboratory findings. Therefore, I recommended admission for additional evaluation. The patient expressed understanding and was agreeable with this plan. The patient was admitted to the hospital in stable condition and sent to a bed under the care of the chest pain center. Diagnosis Primary Impression: Chest pain, rule out acute myocardial infarction Admitting Information Admitting Physician Requests: Observation Camille Raman MD Jul 26, 2017 22:35
--- NOTE | 2017-07-26 22:43 | RADRPT ---
EXAM DATE/TIME: 07/26/2017 22:31 [facility] COMPARISON: CHEST SINGLE AP, July 09, 2017, 10:54. EXTERNAL COMPARISON : [facility] INDICATIONS : Cough. MEDICAL HISTORY : None. SURGICAL HISTORY : CABG. ENCOUNTER: Initial ACUITY: 1 day PAIN SCORE: 0/10 LOCATION: Bilateral chest FINDINGS: No infiltrate, effusion or pneumothorax demonstrated. Heart size stable, mildly enlarged. Median ster notomy and CABG changes again noted. CONCLUSION: No evidence of acute cardiopulmonary disease. Mild, stable compensated cardiomegaly. Avila Engle MD on July 26, 2017 at 22:41 Board Certified Radiologist. This report was verified electronically.
[2017-07-26 22:59] LABS: AUTOMATED NEUTROPHIL # 6.3 TH/MM3 (1.8-7.7); BASOPHIL % 0.3 % (0.0-2.0); EOSINOPHIL # 0.2 TH/MM3 (0-0.4); EOSINOPHIL % 1.7 % (0.0-4.0); HEMATOCRIT 40.2 % (39.0-51.0); HEMO FLAGS DIFF FINAL; LYMPH % 23.7 % (9.0-44.0); LYMPHOCYTE # 2.3 TH/MM3 (1.0-4.8); MEAN CELL VOLUME 92.1 FL (80.0-100.0); MEAN CORPUSCULAR HEMOGLOBIN 31.2 PG (27.0-34.0); MEAN CORPUSCULAR HGB CONC 33.8 % (32.0-36.0); MONO % 8.6 % (0.0-8.0); NEUT % 65.7 % (16.0-70.0); PLATELET COUNT 199 TH/MM3 (150-450); RED BLOOD COUNT 4.37 MIL/MM3 (4.50-5.90); RED CELL DISTRIBUTION WIDTH 13.4 % (11.6-17.2); WHITE BLOOD COUNT 9.6 TH/MM3 (4.0-11.0)
[2017-07-26 23:00] VITALS: BP 169/87; PULSE 74; RESP 16; O2SAT 98
[2017-07-26 23:09] LABS: APTT (PATIENT) 23.3 SEC (24.3-30.1); PROTHROMBIN TIME - PATIENT 10.6 SEC (9.8-11.6)
[2017-07-26 23:14] LABS: ALKALINE PHOSPHATASE 68 U/L (45-117); ALT (GPT) 17 U/L (12-78); CREATINE KINASE 156 U/L (39-308); TOTAL BILIRUBIN ADULT 0.4 MG/DL (0.2-1.0)
[2017-07-26 23:16] LABS: ANION GAP 6 MEQ/L (5-15); AST (GOT) 22 U/L (15-37); BICARBONATE 26.7 MEQ/L (21.0-32.0); BLOOD UREA NITROGEN 24 MG/DL (7-18); CHLORIDE 108 MEQ/L (98-107); GLOMERULAR FILTRATION RATE 51 ML/MIN (>89); MAGNESIUM 2.2 MG/DL (1.5-2.5); POTASSIUM 4.1 MEQ/L (3.5-5.1); SODIUM (NA) 141 MEQ/L (136-145)
[2017-07-26 23:26] LABS: CKMB 1.9 NG/ML (0.5-3.6)
[2017-07-27] VITALS (7 sets, daily range): BP systolic 125–188; BP diastolic 70–84; PULSE 69–96; RESP 14–18; TEMP 97.9–98.4; O2SAT 98
[2017-07-27] MEDS ORDERED: IOHEXOL 350 MG/ML 10 ML VIAL (for RAD DIAG) IVCONTRAST ONE (00:04)
--- NOTE | 2017-07-27 00:23 | RADRPT ---
EXAM DATE/TIME: 07/27/2017 00:00 [facility] COMPARISON: No previous studies available for comparison. INDICATIONS : Chest pain. IV CONTRAST: 75 cc Omnipaque 350 (iohexol) IV RADIATION DOSE: 23.30 CTDIvol (mGy) MEDICAL HISTORY : Hypertension. CAD. SURGICAL HISTORY : CABG ENCOUNTER: Initial ACUITY: 1 day PAIN SCALE: 7/10 LOCATION: Bilateral chest TECHNIQUE: Volumetric scanning of the chest was performed using a pulmonary embolism protocol MIP images were re constructed. Using automated exposure control and adjustment of the mA and/or kV according to patien t size, radiation dose was kept as low as reasonably achievable to obtain optimal diagnostic quality images. DICOM format image data is available electronically for review and comparison. Follow-up recommendations for detected pulmonary nodules are based at a minimum on nodule size and pa tient risk factors according to Fleischner Society Guidelines. FINDINGS: No filling defects to suggest pulmonary embolic disease. Severe coronary disease status post CABG. No adenopathy. No pleural or pericardial effusion. No acute bony abnormalities. Calcified granulomata i n the right upper lobe and left lower lobe. CONCLUSION: 1. Negative for pulmonary embolus. Severe coronary disease status post CABG. Too Velez MD on July 27, 2017 at 0:13 Board Certified Radiologist. This report was verified electronically.
[2017-07-27] MEDS ORDERED: SODIUM CHLORID 0.9% 500 ML INJ 500 ML IV ONE (00:30)
[2017-07-27] MEDS ORDERED: SODIUM CHLORIDE 0.9% FLUSH 10 ML FLUSH IV FLUSH PRN (02:45)
[2017-07-27] MEDS: SODIUM CHLOR 0.9% 1000 ML INJ 1,000 ML IV SCH ×2 (03:52→12:37)
[2017-07-27 03:57] LABS: CREATINE KINASE 117 U/L (39-308)
[2017-07-27 04:09] LABS: CKMB 1.7 NG/ML (0.5-3.6)
[2017-07-27] MEDS: NITROGLYCERIN 2% OINT 1 GM PACKET TOP SCH ×2 (05:48→12:00)
[2017-07-27 07:33] LABS: CREATINE KINASE 117 U/L (39-308)
[2017-07-27 07:46] LABS: CKMB 1.7 NG/ML (0.5-3.6)
[2017-07-27] MEDS ORDERED: PILL SPLITTER OTHER PRN (08:00)
[2017-07-27] MEDS ORDERED: traMADol HCL 50 MG TAB PO PRN (08:00)
[2017-07-27] MEDS ORDERED: SODIUM CHLORIDE 0.9% FLUSH 10 ML FLUSH IV FLUSH SCH (09:00)
[2017-07-27] MEDS ORDERED: ASPIRIN 325 MG TAB PO SCH (09:00)
[2017-07-27] MEDS ORDERED: LOSARTAN 50 MG TAB PO SCH (09:00)
[2017-07-27] MEDS ORDERED: PRAVASTATIN SOD 20 MG TAB PO SCH (09:00)
[2017-07-27] MEDS ORDERED: METOPROLOL TARTRATE 25 MG TAB PO SCH (09:00)
[2017-07-27] MEDS ORDERED: FAMOTIDINE 20 MG TAB PO SCH (09:00)
[2017-07-27] MEDS ORDERED: PANTOPRAZOLE SOD 40 MG DELAYED RELEASE TAB PO SCH (09:00)
--- NOTE | 2017-07-27 09:04 | HHI.HP ---
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 He states it was hot. A friend was nearby and he decided to go inside and cool off. He started to feel better however. This later started to have chest discomfort again and very. TE. He believes the symptoms lasted about 30 minutes. He went to [facility] in the summer in a beach the left AMA and drove himself to this hospital. He follows cardiology Dr. Ledbetter and states he hasn't seen him for a few months. Cannot recall last stress test but believes about 2 years ago. States his last cardiac catheterization was prior to his bypass. Doesn't really feel like these are the same discomfort she had when he needed his bypass. He currently denies any symptoms. Review of Systems General: Patient denies fevers, chills recent, and recent travel HEENT: Patient denies headache, sore throat, difficulty swallowing. Cardiovascular: Has the chest discomfort as mentioned above. Denies sensation of heart beating rapidly or irregularly however it felt as if his beating hard. No syncope but felt he was close to passing out prior to going inside a cool environment. He was diaphoretic. But then states he is working out in the heat. Respiratory: Denies shortness of breath or inspirational chest discomfort. Denies coughing wheezing or hemoptysis. GI: Patient denies nausea, vomiting, diarrhea, abdominal pain, bloody stools. Musculoskeletal: Patient denies joint pain or edema. Denies calf pain or edema. Neurovascular: Patient denies numbness, tingling, weakness in extremities. He was feeling dizzy. Denies headache. Endocrine: Denies polyuria and polydipsia. Hematologic: Denies easy bruising. Skin: Denies rash or itching. Past Family Social History Allergies: Coded Allergies: codeine (Verified Allergy, Severe, Hives, 07/09/17) Past Medical History CAD with history of CABG 2007. Hypertension, hyperlipidemia, GERD. Denies diabetes. Past Surgical History History of CABG. Reported Medications Reported Meds & Active Scripts Active Metoprolol Tartrate 25 Mg Tab 12.5 Mg PO BID Reported Multiple Vitamin 1 Tab 1 Tab PO DAILY B Complex (B-Complex Vitamins) 1 Cap 1 Cap PO DAILY Losartan (Losartan Potassium) 100 Mg Tab 100 Mg PO DAILY Aspirin 325 Mg Tab 325 Mg PO DAILY D3 Super Strength (Cholecalciferol) 2,000 Unit Cap 2,000 Units PO DAILY Fish Oil ([place]-3 Fatty Acids) 1,000 Mg Cap 1 Cap PO TID Lovastatin 20 Mg Tab 20 Mg PO DAILY Tizanidine (Tizanidine HCl) 4 Mg Cap 4 Mg PO TID PRN Tramadol (Tramadol HCl) 50 Mg Tab 50 Mg PO Q6H PRN Pantoprazole (Pantoprazole Sodium) 40 Mg Tab 40 Mg PO DAILY Active Ordered Medications Current Medications Medications (Trade) Dose Ordered Sig/Mary Route Start Time Stop Time Status Last Admin (NS Flush) 2 ml UNSCH PRN IVF 07/26/17 22:15 Sodium Chloride 1,000 ml @ 100 mls/hr Q10H IV 07/27/17 02:37 07/27/17 03:52 (NS Flush) 2 ml UNSCH PRN IV FLUSH 07/27/17 02:45 (NS Flush) 2 ml BID IV FLUSH 07/27/17 09:00 (Pepcid) 20 mg BID PO 07/27/17 09:00 07/27/17 08:23 (Nitroglycerin 2% Oint) 1 inch Q6HR TOP 07/27/17 06:00 07/27/17 05:48 (Aspirin) 325 mg DAILY PO 07/27/17 09:00 07/27/17 08:23 (Cozaar) 100 mg DAILY PO 07/27/17 09:00 07/27/17 08:23 (Pravachol) 20 mg DAILY PO 07/27/17 09:00 07/27/17 08:24 (Lopressor) 12.5 mg BID PO 07/27/17 09:00 (Protonix) 40 mg DAILY PO 07/27/17 09:00 07/27/17 08:23 (Zanaflex) 4 mg TID PRN PO 07/27/17 07:45 (Ultram) 50 mg Q6H PRN PO 07/27/17 08:00 (Pill Splitter) 1 ea UNSCH PRN OTHER 07/27/17 08:00 Family History There is family history of CAD. Social History Patient does not smoke or use illicit drugs. Has occasional alcohol. Physical Exam Vital Signs Vital Signs Date Time Temp Pulse Resp B/P (MAP) Pulse Ox O2 Delivery O2 Flow Rate FiO2 07/27/17 08:11 98 21 07/27/17 08:07 98.4 77 16 188/84 (118) 98 07/27/17 04:45 97.9 69 18 160/70 (100) 98 07/27/17 04:24 74 07/27/17 03:43 07/27/17 02:44 98 Nasal Cannula 2.00 07/27/17 01:00 70 14 125/71 (89) 98 Nasal Cannula 2.00 07/26/17 23:00 74 16 169/87 (114) 98 Nasal Cannula 2.00 07/26/17 22:31 176/81 (112) 169/80 (109) 07/26/17 22:26 74 14 99 Nasal Cannula 2.00 07/26/17 22:26 Nasal Cannula 2.00 07/26/17 22:15 98.5 83 14 176/81 (112) 98 07/26/17 22:05 98.2 84 15 227/103 (144) 98 Room Air Physical Exam GENERAL: This is a well-nourished, well-developed patient, in no apparent distress. Patient speaks in clear complete sentences. Patient is pleasant. HEENT: Head is atraumatic and normocephalic. Neck is supple without lymphadenopathy and trachea is midline. No JVD or carotid bruits. CARDIOVASCULAR: Regular rate and rhythm without murmurs, gallops, or rubs. RESPIRATORY: Clear to auscultation. Breath sounds equal bilaterally. No wheezes , rales, or rhonchi. Chest wall is nontender. Well-healed scar over the sternum. No use of accessory muscles. GASTROINTESTINAL: Abdomen is nontender, nondistended. Abdomen soft. No obvious pulsatile mass or bruit. No CVA tenderness. Strong femoral pulses bilaterally. Normal bowel sounds in all quadrants. MUSCULOSKELETAL: Patient is moving upper and lower extremities freely. No calf tenderness or edema, no Homans sign. Strong pulses in upper and lower extremities. NEUROLOGICAL: Patient is alert and oriented. Cranial nerves 2-12 are grossly intact. No focal deficits and speech is clear. SKIN: No rash and turgor is normal. Laboratory Laboratory Tests Test 07/26/17 22:30 07/27/17 03:20 07/27/17 05:55 White Blood Count 9.6 Red Blood Count 4.37 Hemoglobin 13.6 Hematocrit 40.2 Mean Corpuscular Volume 92.1 Mean Corpuscular Hemoglobin 31.2 Mean Corpuscular Hemoglobin Concent 33.8 Red Cell Distribution Width 13.4 Platelet Count 199 Mean Platelet Volume 8.9 Neutrophils (%) (Auto) 65.7 Lymphocytes (%) (Auto) 23.7 Monocytes (%) (Auto) 8.6 Eosinophils (%) (Auto) 1.7 Basophils (%) (Auto) 0.3 Neutrophils # (Auto) 6.3 Lymphocytes # (Auto) 2.3 Monocytes # (Auto) 0.8 Eosinophils # (Auto) 0.2 Basophils # (Auto) 0.0 CBC Comment DIFF FINAL Differential Comment Prothrombin Time 10.6 Prothromb Time International Ratio 1.0 Activated Partial Thromboplast Time 23.3 D-Dimer Quantitative (PE/DVT) 0.69 Blood Urea Nitrogen 24 Creatinine 1.40 Random Glucose 106 Total Protein 7.8 Albumin 4.0 Calcium Level 8.7 Magnesium Level 2.2 Alkaline Phosphatase 68 Aspartate Amino Transf (AST/SGOT) 22 Alanine Aminotransferase (ALT/SGPT) 17 Total Bilirubin 0.4 Sodium Level 141 Potassium Level 4.1 Chloride Level 108 Carbon Dioxide Level 26.7 Anion Gap 6 Estimat Glomerular Filtration Rate 51 Total Creatine Kinase 156 117 117 Creatine Kinase MB 1.9 1.7 1.7 Troponin I 0.02 0.02 LESS THAN 0.02 B-Type Natriuretic Peptide 71 Lipase 122 Result Diagram: 07/26/17222907/26/172229 Imaging Last [address] Angiography 07/26/172 Signed Impressions: Service Date/Time: Thursday, July 27, 2017 00:00 - CONCLUSION: 1. Negative for pulmonary embolus. Severe coronary disease status post CABG. Too Velez MD Chest X-Ray 07/26/172210 Signed Impressions: Service Date/Time: Wednesday, July 26, 2017 22:31 - CONCLUSION: No evidence of acute cardiopulmonary disease. Mild, stable compensated cardiomegaly. Avila Engle MD Course EKGs have been sinus rhythm without significant ST segment depressions or elevations. Caprini VTE Risk Assessment Caprini VTE Risk Assessment: Mod/High Risk (score >= 2) Caprini Risk Assessment Model Point Value = 1 Point Value = 2 Point Value = 3 Point Value = 5 Age 41-60 Minor surgery BMI > 25 kg/m2 Swollen legs Varicose veins or History of unexplained or recurrent spontaneous Oral contraceptives or hormone replacement Sepsis (< 1 month) Serious lung disease, including pneumonia (< 1 month) Abnormal pulmonary function Acute myocardial infarction Congestive heart failure (< 1 month) History of inflammatory bowel disease Medical patient at bed rest Age 61-74 Arthroscopic surgery Major open surgery (> 45 min) Laparoscopic surgery (> 45 min) Malignancy Confined to bed (> 72 hours) Immobilizing plaster cast Central venous access Age >= 75 History of VTE Family history of VTE Factor V Leiden Prothrombin [id number] Lupus anticoagulant Anticardiolipin antibodies Elevated serum homocysteine Heparin-induced thrombocytopenia Other congenital or acquired thrombophilia Stroke (< 1 month) Elective arthroplasty Hip, pelvis, or leg fracture Acute spinal cord injury (< 1 month) Prophylaxis Regimen Total Risk Factor Score Risk Level Prophylaxis Regimen 0-1 Low Early ambulation 2 Moderate Order ONE of the following: *Sequential Compression Device (SCD) *Heparin 5000 units SQ BID 3-4 Higher Order ONE of the following medications: *Heparin 5000 units SQ TID *Enoxaparin/Lovenox 40 mg SQ daily (WT < 150 kg, CrCl > 30 mL/min) *Enoxaparin/Lovenox 30 mg SQ daily (WT < 150 kg, CrCl > 10-29 mL/min) *Enoxaparin/Lovenox 30 mg SQ BID (WT < 150 kg, CrCl > 30 mL/min) AND/OR *Sequential Compression Device (SCD) 5 or more Highest Order ONE of the following medications: *Heparin 5000 units SQ TID (Preferred with Epidurals) *Enoxaparin/Lovenox 40 mg SQ daily (WT < 150 kg, CrCl > 30 mL/min) *Enoxaparin/Lovenox 30 mg SQ daily (WT < 150 kg, CrCl > 10-29 mL/min) *Enoxaparin/Lovenox 30 mg SQ BID (WT < 150 kg, CrCl > 30 mL/min) AND *Sequential Compression Device (SCD) Assessment and Plan Assessment and Plan * Chest pain: Patient has had serial cardiac enzymes and EKGs for ruling out purposes. He was seen by Dr. Joey Garcia of cardiology in the chest pain center and will undergo a Lexiscan. He'll be discharged home with instructions to follow-up with his life educator if nonischemic. * CAD: We'll reassess with stress testing. Patient should follow with life educator. He'll resume his medication. * Hypertension: Continue current medication. * Hyperlipidemia: Continue current medication. * GERD: Continue current medication. Patient is stable at this time. He is agreeable to this plan. Dayron Butt Jul 27, 2017 09:04
[2017-07-27] MEDS ORDERED: REGADENOSON INJ 0.4 MG/5 ML SYR ONE (10:00)
--- NOTE | 2017-07-27 12:05 | RADRPT ---
EXAM DATE/TIME: 07/27/2017 09:24 [place] COMPARISON: No previous studies available for comparison. INDICATIONS : Bilateral chest pain. Angina. Coronary artery disease. DOSE: 27.2 mCi Tc99m Myoview at stress. 8.4 mCi Tc99m Myoview at rest. 0.4 mg Lexiscan STRESS SYMPTOMS: Chest pain and warm feeling. EJECTION FRACTION: > 70% MEDICAL HISTORY : Hypertension. SURGICAL HISTORY : CABG ENCOUNTER: Initial ACUITY: 1 day PAIN SCALE: 4/10 LOCATION: Bilateral chest TECHNIQUE: The patient underwent pharmacologic stress with infusion of prescribed dose. Continuous ECG tracing was monitored during stress. Gated SPECT imaging was performed after stress and conventional SPECT i maging was performed at rest. The examination was performed on a SPECT/CT scanner, both attenuation and non-corrected datasets were reviewed. FINDINGS: DISTRIBUTION: The maximum perfused segment at stress is in the inferoseptal wall. PERFUSION STUDY: The pattern of perfusion at stress is within normal limits. GATED STUDY: There is intact wall motion and thickening without hypokinetic or dyskinetic segments. CONCLUSION: 1. No reversible perfusion defect to suggest stress induced myocardial ischemia is identified. RISK CATEGORY: Low (<1% Annual Mortality Rate) Preston Darling MD on July 27, 2017 at 12:02 Board Certified Radiologist. This report was verified electronically.
--- NOTE | 2017-07-27 12:22 | HHI.DCPOC ---
Discharge Care Plan Diagnosis: (1) Chest pain (2) CAD (coronary artery disease) (3) Hx of CABG (4) Hypertension (5) Hyperlipidemia Goals to Promote Your Health * To prevent worsening of your condition and complications * To maintain your health at the optimal level Directions to Meet Your Goals Take your medications as prescribed Follow your dietary instruction Follow activity as directed Keep your appointments as scheduled Take your immunizations and boosters as scheduled If your symptoms worsen call your PCP, if no PCP go to Urgent Care Center or Emergency Room Smoking is Dangerous to Your Health. Avoid second hand smoke Call the 24-hour hour crisis hotline for domestic abuse at Dayron Butt Jul 27, 2017 12:22
--- NOTE | 2017-07-27 16:36 | EKG ---
Date Performed: 07/27/2017 Time Performed: 05:43:24 PTAGE: 66 years EKG: Sinus rhythm NORMAL ECG PREVIOUS TRACING : 07/27/2017 03.24 Since previous tracing, no significant change noted DOCTOR: Joey Garcia Interpretating Date/Time 07/27/2017 16:35:31
--- NOTE | 2017-07-27 16:37 | EKG ---
Date Performed: 07/27/2017 Time Performed: 03:24:36 PTAGE: 66 years EKG: Sinus rhythm NORMAL ECG PREVIOUS TRACING : 07/26/2017 22.10 Since previous tracing, no significant change noted DOCTOR: Joey Garcia Interpretating Date/Time 07/27/2017 16:35:56
--- NOTE | 2017-07-27 16:38 | EKG ---
Date Performed: 07/26/2017 Time Performed: 22:10:49 PTAGE: 66 years EKG: Sinus rhythm BORDERLINE ECG PREVIOUS TRACING : 07/09/2017 10.03 Since previous tracing, no significant change noted DOCTOR: Joey Garcia Interpretating Date/Time 07/27/2017 16:36:31
--- NOTE | 2017-07-27 16:39 | TR ---
Date Performed: 07/27/2017 Time Performed: 10:06:51 DOCTOR: Joey Garcia DRUG LIST: CLINICAL HISTORY: REASON FOR TEST: Angina REASON FOR ENDING: OBSERVATION: CONCLUSION: Patient exercised using the Dustin protocol. No electrocardiographic changes were see n to suggest ischemia. Hemodynamic response to exercise was normal. No significant arrhythmia was pre sent. COMMENTS:
== END 2017-07-27 14:41 | disposition home or self-care (01) ==
LOC: NEPC 22:01 → NEDA 07-27 00:43 → NEPGCP 07-27 04:22
PROVIDERS: ADMIT Internal Medicine Interventional Cardiology; ATTEND Internal Medicine Interventional Cardiology
DX: R07.89 Other chest pain (principal); I25.10 Atherosclerotic heart disease of native coronary artery without angina pectoris; I10 Essential (primary) hypertension; E78.5 Hyperlipidemia, unspecified; K21.9 Gastro-esophageal reflux disease without esophagitis; Z95.1 Presence of aortocoronary bypass graft; Z87.11 Personal history of peptic ulcer disease; Z87.442 Personal history of urinary calculi
CPT/HCPCS: 71010; 71275; 78452; 80053; 82550; 82552; 83690; 83735; 83880; 84484; 85025; 85379; 85610; 85730; 93005; 93017; 96360; 99285; A9502; G0378; J2785; J7030; J7040; Q9967